=== PATIENT | male | born 1950 | race Caucasian/White ===

== ENCOUNTER 2021-06-05 12:53 | Outpatient (CLI) | payer MEDICARE, OTHER, SELFPAY | END 2021-06-05 12:54 | disposition home or self-care (01) | LOC: CHSAUDIO 12:57 | PROVIDERS: PCP Family Medicine; Visit Provider Otolaryngology | DX: H91.93 Unspecified hearing loss, bilateral (principal) | CPT/HCPCS: 92557; 92567 ==